=== PATIENT | male | born 1975 | race Caucasian/White ===

== ENCOUNTER 2016-06-19 14:44 | Emergency (ER) | payer SELFPAY ==
[2016-06-19] MEDS ORDERED: MORPHINE SULFATE 4 MG/ML SYRG ONE ×2 (14:56→15:41)
[2016-06-19] MEDS ORDERED: ONDANSETRON HCL/PF 2 MG/ML VIAL ONE (14:56)
[2016-06-19] MEDS ORDERED: MORPHINE SULFATE 4 MG/ML SYRG IV ONE ×2 (15:00→15:43)
[2016-06-19] MEDS ORDERED: ONDANSETRON HCL/PF 2 MG/ML VIAL IV ONE (15:00)
[2016-06-19] MEDS ORDERED: DIPHTH,PERTUSS(ACELL),TET VAC 0.5 ML VIAL IM ONE ×2 (15:05→15:07)
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
[2016-06-19 15:20] LABS: Hematocrit 44.3 % (42.0-52.0); Hemoglobin 15.1 gm/dL (13.5-18.0); Mean Cell Volume 91.5 fl (78-100); Mean Corpuscular Hemoglobin 31.2 pg (27-31); Mean Corpuscular Hgb Conc 34.1 g/dl (32-36); Mean Platelet Volume 10.1 fl (6.0-9.5); Neutrophil # 5.5 K/mm3 (1.3-6.0); Neutrophil % 73.5 % (42-75.0); Platelet Count 183 K/mm3 (150-450); Red Blood Count 4.84 M/mm3 (4.7-6.0); Red Cell Distribution Width 12.1 % (11.5-14.0); White Blood Count 7.5 K/mm3 (4.0-10.5)
[2016-06-19 15:32] LABS: Albumin * 3.9 gm/dl (3.4-5.0); Anion Gap 15.6 mmol/L (6.8-13.8); BUN/Creatinine Ratio 17.4 (9.0-21.6); Bilirubin, Total 0.3 mg/dL (0.0-1.1); Ca. Corrected For Albumin 8.6 mg/dL (8.4-10.2); Calcium * 8.8 mg/dL (7.9-10.9); Potassium 3.6 mmol/L (3.4-4.6); Total Protein 6.8 gm/dL (6.2-8.2)
[2016-06-19] MEDS ORDERED: RINGERS SOLUTION,LACTATED 1,000 ML IV ONE (15:43)
[2016-06-19 15:49] VITALS: BP 127/89
== END 2016-06-19 16:00 | disposition home or self-care (01) ==
LOC: EDBD → ER 14:44 → MERGE 14:44 → ER 16:00
DX: T22.112A Burn of first degree of left forearm, initial encounter (principal); T22.111A Burn of first degree of right forearm, initial encounter; F17.210 Nicotine dependence, cigarettes, uncomplicated; X08.8XXA Exposure to other specified smoke, fire and flames, initial encounter; Y92.009 Unspecified place in unspecified non-institutional (private) residence as the place of occurrence of the external cause; Z23 Encounter for immunization